=== PATIENT | female | born 1955 | race Caucasian/White ===

== ENCOUNTER → 2021-12-16 08:56 | Outpatient (BNVA) | payer MEDICARE, OTHER, SELFPAY | PROVIDERS: PCP Internal Medicine; Visit Provider Nurse Practitioner Family | DX: H81.09 Meniere's disease, unspecified ear (principal); H55.00 Unspecified nystagmus | CPT/HCPCS: 99212 ==

== ENCOUNTER → 2022-06-30 08:52 | Outpatient (BNVA) | payer MEDICARE, OTHER, SELFPAY | PROVIDERS: PCP Internal Medicine; Visit Provider Nurse Practitioner Family | DX: H55.00 Unspecified nystagmus (principal); H81.09 Meniere's disease, unspecified ear | CPT/HCPCS: Q3014 ==

== ENCOUNTER 2023-04-18 08:18 | Outpatient (AMB) | payer MEDICARE, OTHER, SELFPAY ==
--- NOTE | 2023-04-18 08:30 | A.OFFVIS_ITS ---
Intake Vital Signs 04/18/23 08:32 Weight 108 lb BP 102/58 L Blood Pressure Location Lt brachial Position Sitting Pulse 73 Pulse Source Pulse Oximeter Pulse Oximetry (%) 98 Oxygen Delivery Method Room Air Intake Visit Reasons: 6m follow up - LVM Intake Note: F/U dizziness Passenger Locomotive Engineer Required: No Allergies No Known Allergies Allergy (Verified 04/18/23 08:31) HPI HPI Comments History of Present Illness Details 67-yr-old female presents for f/u visit. Pt denies any significant interval medical changes. Pt reports that she did not do well with the vestibular therapist she saw in Nov- states the eval was difficult and caused her to feel unwell for the entire day. She states the PT questioned her Meniere's dx. 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 She tries to do this in the am. She tries to control light exposure, pacing her activities. She is still doing massage once a month. [facility] Medical History (Updated 12/16/21 @ 18:38 by OSMANI Velarde) Headache Surgical History (Updated 12/16/21 @ 09:27 by Jeana Zaman CMA) H/O hernia repair Social History (Updated 04/18/23 @ 08:32 by Jeana Zaman CMA) Alcohol intake: current Alcohol intake frequency: holidays/special occasions only Patient Tobacco Use Status: Never used Tobacco Review of Systems Const All systems reviewed & are unremarkable except as noted in HPI and below Physical Exam Vital Signs: Last Vital Signs Pulse 73 04/18/23 08:32 BP 102/58 L 04/18/23 08:32 Pulse Ox 98 04/18/23 08:32 Oxygen Delivery Method Room Air 04/18/23 08:32 Const General: cooperative and no acute distress Orientation/consciousness: patient oriented x3 HEENT Head: Yes normocephalic Resp Effort & Inspection: normal respiratory effort and able to speak in complete sentences Neuro General: patient oriented x3, gait normal and CN's II-XI intact bilaterally Cognition (Neuro): normal cognition Motor exam (neuro): 5/5 motor strength present throughout Psych Appearance: grossly normal Mental Status: mental status grossly normal Speech and movement: Normal speech and movement present Affect: normal affect Attitude: cooperative Thought process: Normal thought process present Thought content: Normal thought content present Insight: Good insight present (Psych) Judgement: Good judgement present (Psych) Assessment & Plan Assessment & Plan (1) Dizziness: Comment: unsteady episodes. ? cardiogenic, ? Meniere's, ? atypical migraine. Code(s): R42 - Dizziness and giddiness (2) Menieres disease: Code(s): H81.09 - Meniere's disease, unspecified ear Plan Unfortunately, recent vestibular tx was not tolerated well. F/u w/ [facility] when able. Continue exercise, salt moderation, fluids, limiting exacerbating triggers. Continue supplements and Ibuprofen prn f/u in 9 months or sooner prn Coding Level of Care Code Est Pt Level 3 (38078) Diagnoses Dizziness R42 Menieres disease H81.09
[2023-04-18 08:32] VITALS: BP 102/58; PULSE 73; O2SAT 98
== END 2023-04-18 09:33 | disposition home or self-care (01) ==
PROVIDERS: Visit Provider Nurse Practitioner Family
DX: H81.09 Meniere's disease, unspecified ear (principal)
CPT/HCPCS: 99213

== ENCOUNTER → 2023-04-18 08:18 | Outpatient (BNVA) | payer MEDICARE, OTHER, SELFPAY | PROVIDERS: Visit Provider Nurse Practitioner Family | DX: H81.09 Meniere's disease, unspecified ear (principal) | CPT/HCPCS: 99212 ==

== ENCOUNTER 2025-02-19 10:48 | Outpatient (AMB) | payer MEDICARE, OTHER, SELFPAY ==
--- NOTE | 2025-02-19 11:00 | MHC.OFFVIS ---
Vital Signs 02/19/25 11:06 Weight 107 lb BP 100/72 Blood Pressure Location Lt brachial Position Sitting Pulse 64 Pulse Source Pulse Oximeter Pulse Oximetry (%) 98 Oxygen Delivery Method Room Air Intake Visit Reasons: follow up Intake Note: Patient presents follow up for dizzines. Crematorium Operator Required: No Accompanied by: Self / Same As Patient Allergies No Known Allergies Allergy (Verified 02/19/25 11:07) Medication List - Last Reconciled 02/19/25 by OSMANI Velarde nystatin-triamcinolone 100,000-0.1 unit/g-% appl topical HPI Comments Details: 69-yr-old female presents for f/u visit of vestibular symptoms and history of white matter change seen on brain MRI. Pt denies any significant interval medical changes. Pt reports she continues to have to pace her activities, such as not reading beyond a certain length of time, avoiding sustained light exposure, being cautious not to turn her body/head to frequently, as not to induce dizziness and feeling of unwellness. She can still be prone to eye strain. She continues to exercise, though modifies the exercises to avoid triggering her dizziness. Patient continues on riboflavin 100 mg twice a day, vitamin B2 and magnesium supplements She is curious about trying a vitamin-B complex instead. She has curious about the status of the previously seen white matter abnormalities on previous brain MRI. [facility] Medical History (Updated 02/19/25 @ 11:52 by OSMANI Velarde) Headache Surgical History H/O hernia repair Social History Alcohol intake: current Alcohol intake frequency: holidays/special occasions only Patient Tobacco Use Status: Never used Tobacco Physical Exam Vital Signs: Last Vital Signs Pulse 64 02/19/25 11:06 BP 100/72 02/19/25 11:06 Pulse Ox 98 02/19/25 11:06 Oxygen Delivery Method Room Air 02/19/25 11:06 Const General: cooperative and no acute distress Orientation/consciousness: patient oriented x3 HEENT Head: Yes normocephalic Resp Effort & Inspection: normal respiratory effort and able to speak in complete sentences Neuro General: patient oriented x3, gait normal and CN's II-XI intact bilaterally Cognition (Neuro): normal cognition Motor exam (neuro): 5/5 motor strength present throughout Psych Appearance: grossly normal Mental Status: mental status grossly normal Speech and movement: Normal speech and movement present Affect: normal affect Attitude: cooperative Thought process: Normal thought process present Thought content: Normal thought content present Insight: Good insight present (Psych) Judgement: Good judgement present (Psych) Assessment & Plan Assessment & Plan (1) Dizziness: Comment: unsteady episodes. ? cardiogenic, ? Meniere's, ? atypical migraine. Code(s): R42 - Dizziness and giddiness Category: Medical (2) Nystagmus: Comment: cerebellovestibular nystagmus Code(s): H55.00 - Unspecified nystagmus Category: Medical (3) Menieres disease: Code(s): H81.09 - Meniere's disease, unspecified ear Category: Medical Plan Patient advised to undergo follow-up brain MRI without contrast to assess status of white matter changes seen on previous brain MRI. Continue exercise, salt moderation, fluids, limiting exacerbating triggers. Continue riboflavin up to 200 mg twice a day. Continue vitamin B12 and magnesium supplements. She may add vitamin-B complex to this regimen-with max doses of riboflavin up to 500 mg a day and magnesium up to 500 mg per day. May use Ibuprofen prn F/u w/ [facility] Previous trials: Vestibular therapy was not tolerated. Will follow-up upon review of above and patient to follow-up in clinic in 12 months or sooner prn. Orders: Orders MR head/brain wo con Today H55.00 - Unspecified nystagmus, R42 - Dizziness and giddiness, R90.82 - White matter disease, unspecified Coding Level of Care Code Est Pt Level 4 (19536) Diagnoses Dizziness R42 Nystagmus H55.00 Menieres disease H81.09
[2025-02-19 11:06] VITALS: BP 100/72; PULSE 64; O2SAT 98
--- OUTSIDE RECORDS SUMMARY | 2025-02-19 12:47 | XMS_ITS | Clinical Summary ---
Author Organization [address] [facility] Address [address] [place] [address] Phone Care Team Providers Care Milling Operator Name Role Phone Jeronimo Villagomez MD Primary Care Provider [phone] Allergies No known active allergies Medications calcium carbonate-vitami n D3 600 mg-12.5 mcg (500 unit) capsule Take by mouth. Active multivitamin with minerals (CENTRUM/CERTAVI T) 18-400 mg-mcg tablet tablet Take 1 tablet by mouth 1 (one) time each day. Active Active Problems Problem Noted Date Diagnosed Date Pulmonary nodule 02/17/2025 Cough 02/17/2025 Encounters Date Type Department Care Team Description 02/19/2025 10:30 AM EDT [facility] [address] [facility] [address] [place] [address] Aura Quintana MD Pulmonary nodule (Primary Dx); Cough, unspecified type from Last 3 Months Surgical History Surgery Date Site/Laterality Comments HERNIA REPAIR PROCEDURE:HERNIA REPAIR CATARACT EXTRACTION, BILATERAL PROCEDURE:CATARACT EXTRACTION, BILATERAL Medical History Medical History Date Comments Peptic ulceration DX:Peptic ulce ration Meniere's disease DX:Meniere's d isease Photophobia of both eyes 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 Family History Medical History Relation Name Comments Cancer Brother Skin Cancer Cousin breast Heart disease Father Hypertension Father Cancer Mother breast cancer COPD Sister Emphysema Sister Relation Name Status Comments Brother Cousin Father Mother Sister Social History Tobacco Use Types Packs/Day Years Used Date Smoking Tobacco: Former Passive Smoke Exposure: Past Smokeless Tobacco: Never Alcohol Use Standard Drinks/Week Comments No 0 (1 standard drink = 0.6 oz pur e alcohol) Comments Unknown Sex and Gender Information Value Date Recorded Sex Assigned at Not on file Legal Sex Female 7:57 PM EST Gender Identity Not on file Sexual Orientation Not on file Obstetrics History Last Filed Vital Signs Vital Sign Reading Time Taken Comments Blood Pressure 108/70 02/19/2025 10:36 AM EDT Pulse 65 02/19/2025 10:36 AM EDT Temperature 36.1 C (97 F) 02/19/2025 10:36 AM EDT Respiratory Rate 17 02/19/2025 10:3 6 AM EDT Oxygen Saturation 99% 02/19/2025 10: 36 AM EDT Inhaled Oxygen Concentration - - Weight 48.4 kg (106 lb 12.8 oz) 025 10:36 AM EDT Height 154.9 cm (5' 1 ) 02/19/2025 10:3 6 AM EDT Body Mass Index 20.18 02/19/2025 10:36 AM EDT Plan of Treatment Health Maintenance Due Date Last Done Comments Breast Cancer Screening 1955 Pneumococcal Vaccine: 50+ Years (1 of 1 - PCV) 2004 Zoster Vaccines (1 of 2) 2004 COVID-19 Vaccine ( season) 2024 05/22/2023, 08/14/2021, 01/27/2021, Additional history exists Cholesterol Screening (Lipid Panel) 01/23/2025 Colorectal Cancer Screening: Colonoscopy 01/23/2025 Depression Screening 01/23/2025 Falls Risk Assessment 01/23/2025 Hepatitis C Screening 01/23/2025 Medicare Annual Wellness Visit 01/23/2025 12/12/2022 Osteoporosis Screening (Bone Density Screening) 01/23/2025 Social Influencers of Health Screening 01/23/2025 RSV Immunization Adult Patients (1 - 1-dose 75+ series) 2029 DTaP,Tdap,and Td Vaccines (2 - Td or Tdap) 12/27/2032 12/27/2022 Influenza Vaccine Completed 05/20/2024, , 06/10/2022, Additional history exists HIB Vaccines Aged Out No longer eligi ble based on patient's age to complete this topic HPV Vaccines Aged Out No longer eligi ble based on patient's age to complete this topic Hepatitis A Vaccines Aged Out No long er eligible based on patient's age to complete this topic Hepatitis B Vaccines Aged Out No long er eligible based on patient's age to complete this topic IPV Vaccines Aged Out No longer eligi ble based on patient's age to complete this topic MMR Vaccines Aged Out No longer eligi ble based on patient's age to complete this topic Meningococcal ACWY Vaccine Aged Out N o longer eligible based on patient's age to complete this topic Meningococcal B Vaccine Aged Out No l onger eligible based on patient's age to complete this topic RSV Immunization Patients Under 20 months Aged Out No longer eligible based on patient's age to complete this topic Varicella Vaccines Aged Out No longer eligible based on patient's age to complete this topic Insurance MEDICARE [facility] Care Teams Milling Operator Relationship Specialty Start Date End Date Jeronimo Villagomez MD [address] [place] [id number] PCP - General Internal Medicine 04/24/18
== END 2025-02-19 12:18 | disposition home or self-care (01) ==
LOC: HO.HSMS 10:49
PROVIDERS: PCP Internal Medicine; Visit Provider Nurse Practitioner Family
DX: H55.00 Unspecified nystagmus (principal); H81.09 Meniere's disease, unspecified ear; R42 Dizziness and giddiness
CPT/HCPCS: 99214

== ENCOUNTER → 2025-02-19 10:48 | Outpatient (BNVA) | payer MEDICARE, OTHER, SELFPAY | PROVIDERS: PCP Internal Medicine; Visit Provider Nurse Practitioner Family | DX: R42 Dizziness and giddiness (principal); H55.09 Other forms of nystagmus; H81.09 Meniere's disease, unspecified ear; R90.82 White matter disease, unspecified | CPT/HCPCS: 99212 ==

== ENCOUNTER 2025-03-22 08:44 | Outpatient (REF) | payer MEDICARE, OTHER, SELFPAY ==
--- OUTSIDE RECORDS SUMMARY | 2024-07-31 10:40 | XMS_ITS ---
Author Organization [facility] Address [address] [address] Care Team Providers Care Seafood Preparer Name Role Phone ADINA ALONSO M.D. Primary Care Provider Unavailab Luzmaria Hernandez Unavailable [phone] REASON FOR VISIT HR MEDICARE PE (YELLOW FORM DONE) Encounters Encounter Location Date Provider Diagnosis [facility] [place] [address] [address] 07/31/2024 Luzmaria Lea Plan Of Treatment Next Appt Details Provider Name:Luzmaria perezyahir, 08/25/2025 10:00:00 AM, [address] [place] [address], [place], [address], Progress Notes * COREY CHILELDOB:1955 (69 yo F)Acc No.[id number]:07/31/2024 PROGRESS NOTES Patient: COREY SANFORD Appointment Provider: Joan Lea M.D. :1955 A ge:69 Y S ex:Female Date:07/31/2024 Address:[address] [place] [address] Pcp:ADINA ALONSO M.D. Subjective: * Chief Complaints: * 1 . HR MEDICARE PE (YELLOW FORM DONE). * Medical History: U nspecified infantile and juvenile cataract, unspecified eye, Herpesviral vulvovaginitis, Benign neoplasm of vulva, Postmenopausal atrophic vaginitis, Inconclusive mammogram, Other abnormal and inconclusive findings on diagnostic imaging of breast, Family history of malignant neoplasm of breast, Melena, Migraine without aura, intractable, without status migrainosus, Visual discomfort, bilateral, Meniere's disease, right ear, Unspecified disorder of binocular vision, Unspecified disorder of vestibular function, unspecified ear, Other specified disorders of binocular movement, Generalized contraction of visual field, unspecified eye, Mammographic heterogeneous density, bilateral breasts. * Rigging Supervisor History: G ravida/ Para 2 /2. S exual activity c urrently sexually active. L ast Pap Smear: NIL, NEG HPV, 03/31/20 NIL, NEG HPV, 03/02/2017, NEG HRHPV. M ammogram: 50-75% density, 09/08/23 Breast MRI, 03/25/23 50-75% density, 08/31/22 Alli Breast Ultrasound, 09/15/21 Bilateral Screening Breast U/S, 03/17/21 > 75% density, 10/28/20 Breast MRI, 03/11/20 50-75% density, 12/2017 normal, 01/09/17 50-75% density, 03/02/16 Neg MRI, 01/04/16 50-75% density, 12/31/14 < 50% density, 12/17/13, 50-75% density. L MP and menses M enopause. H istory of STD's: H erpes Simplex Virus (HSV). B irth Control: N one. C olonoscopy 2011. B one Density: , 11/16/20, 01/04/16, 12/17/13. G YN HISTORY MISC. DB counseling done. Linda Olmedock risk 32.1%. myRisk was neg, and risk re-calculated to 16.5%. No supplemental screening indicated. * OB History: T otal pregnancies 2 . T otal living children 2 . N VD 2 . Objective: * Vitals: Assessment: Plan: * Treatment: * Images: Billing Information: * Visit Code: * Procedure Codes: * Electronic signature of Reina Lea MD on 03/22/2025 at 08:49 AM EDT Sign off status: Pending * Appointment Provider: Joan Lea M.D. Date: 1 10/01/2023 Generated for Bjorn whitfield/Iwona/Shavon on: 0 03/22/2025 08:49 AM EDT
--- NOTE | ~2025-03-22 | MR_ITS ---
CLINICAL HISTORY: white matter disease MR Brain without gadolinium Comparison: None provided Findings: The size and shape of the ventricular system is within normal limits for this patient's age. Few scattered foci of T2 and FLAIR hyperintensity are identified within the periventricular and deep white matter, not unexpected in a patient of this age. Mercado-white differentiation is well preserved. No restricted diffusion. No midline shift or mass effect. No intracranial hemorrhage. Visualized flow voids are patent. No calvarial lesions. IMPRESSION: Unremarkable brain MRI for age. This document has been electronically signed by: Doron Camarena MD on 03/22/2025 10:03:21
--- OUTSIDE RECORDS SUMMARY | 2025-03-22 08:49 | XMS_ITS | Patient Health Record ---
Author Organization [facility] [address] Address [address] [place] [address] Care Team Providers Care Slider Assembler Name Role Phone CELESTE ADINA Primary Care Provider VILMA VILLAGOMEZ Unavailable [phone] BENITA JIMENEZ Unavailable [phone] MARK CHRISTIANSEN Unavailable [phone] BAY YATES Unavailable [phone] VIV VILLALOBOS Unavailable [phone] Allergies No Known Allergies Results Component Value Reference Range Notes Hemoglobin A1c Reviewed date:01/07/2025 03:04:02 PM Interpretation: Performing Lab:[facility], [address] [place] [address], Phone - [phone], Director - Stephanie Notes/Report: Hemoglobin A1c 5.5 Reference Range: [place] Diabetes Association (ADA) Guidelines: <5.7: Decreased risk for diabetes 5.7 - 6.4: Increased risk for diabetes >6.4: Ongoing Hyperglycemia of any cause <7.0: Glycemic control for adults with diabetes Estimated Average Glucose 111 Hemoglobin [id number]-[id number] Reviewed date:12/17/2024 08:08:10 AM Interpretation: Performing Lab:[facility], [address] [facility], Phone - [phone], Director - Oksana Notes/Report: Hemoglobin A1c 5.8 4.8-5.6 % . Prediabetes: 5.7 - 6.4 Diabetes: >6.4 Glycemic control for adults with diabetes: <7.0 Urinalysis, Routine-[id number] Reviewed date:12/17/2024 08:08:10 AM Interpretation: Performing Lab:[facility], [address] [place] [address], Phone - [phone], Director - Oksana Notes/Report: Specific [place] 1.008 1.005-1.030 pH 6.0 5.0-7.5 Urine-Color Yellow Yellow Appearance Clear Clear WBC Esterase Negative Negative Protein Negative Negative/Trace Glucose Negative Negative Ketones Negative Negative Occult Blood Negative Negative Bilirubin Negative Negative Urobilinogen,Semi-Qn 0.2 0.2-1.0 mg/dL Nitrite, Urine Negative Negative Microscopic Examination Micr oscopic not indicated and not performed. Urinalysis, Complete-[id number] Reviewed date:05/23/2024 09:29:25 AM Interpretation: Performing Lab:[facility], [address] [place] [address], Phone - [phone], Director - Oksana Notes/Report: Specific [place] 1.007 1.005-1.030 pH 6.5 5.0-7.5 Urine-Color Yellow Yellow Appearance Clear Clear WBC Esterase Trace Negative Protein Negative Negative/Trace Glucose Negative Negative Ketones Negative Negative Occult Blood Negative Negative Bilirubin Negative Negative Urobilinogen,Semi-Qn 0.2 0.2-1.0 mg/dL Nitrite, Urine Negative Negative Microscopic Examination See below: Micr oscopic was indicated and was performed. WBC None seen 0 - 5 /hpf RBC None seen 0 - 2 /hpf Epithelial Cells (non renal) 0-10 0 - 10 /hpf Casts None seen None seen /lpf Bacteria None seen None seen/Few CBC With Differential/Platel et-[id number] Reviewed date:05/23/2024 09:29:39 AM Interpretation: Performing Lab:[facility], [address] [place] [address], Phone - [phone], Director - Fernandezy Notes/Report: WBC 3.8 3.4-10.8 x10E3/uL RBC 4.19 3.77-5.28 x10E6/uL Hemoglobin 13.1 11.1-15.9 g/dL Hematocrit 39.5 34.0-46.6 % MCV 94 79-97 fL MCH 31.3 26.6-33.0 pg MCHC 33.2 31.5-35.7 g/dL RDW 11.4 11.7-15.4 % Platelets 194 150-450 x10E3/uL Neutrophils 54 Not Estab. % Lymphs 29 Not Estab. % Monocytes 14 Not Estab. % Eos 2 Not Estab. % Basos 1 Not Estab. % Neutrophils (Absolute) 2.0 1.4-7.0 x10E3/uL Lymphs (Absolute) 1.1 0.7-3.1 x10E3/uL Monocytes(Absolute) 0.5 0.1-0.9 x10E3/uL Eos (Absolute) 0.1 0.0-0.4 x10E3/uL Baso (Absolute) 0.0 0.0-0.2 x10E3/uL Immature Granulocytes 0 Not Estab. % Immature Grans (Abs) 0.0 0.0-0.1 x10E3/uL CBC With Differential/Platel et-[id number] Reviewed date:12/17/2024 08:08:10 AM Interpretation: Performing Lab:[facility], [address] [place] [address], [place], Phone - [phone], Director - Oksana Notes/Report: WBC 3.2 3.4-10.8 x10E3/uL RBC 4.63 3.77-5.28 x10E6/uL Hemoglobin 14.1 11.1-15.9 g/dL Hematocrit 42.9 34.0-46.6 % MCV 93 79-97 fL MCH 30.5 26.6-33.0 pg MCHC 32.9 31.5-35.7 g/dL RDW 11.9 11.7-15.4 % Platelets 176 150-450 x10E3/uL Neutrophils 52 Not Estab. % Lymphs 35 Not Estab. % Monocytes 11 Not Estab. % Eos 1 Not Estab. % Basos 1 Not Estab. % Neutrophils (Absolute) 1.7 1.4-7.0 x10E3/uL Lymphs (Absolute) 1.1 0.7-3.1 x10E3/uL Monocytes(Absolute) 0.4 0.1-0.9 x10E3/uL Eos (Absolute) 0.0 0.0-0.4 x10E3/uL Baso (Absolute) 0.0 0.0-0.2 x10E3/uL Immature Granulocytes 0 Not Estab. % Immature Grans (Abs) 0.0 0.0-0.1 x10E3/uL Vitamin D, [id number] Reviewed date:05/23/2024 09:27:45 AM Interpretation: Performing Lab:[facility], [facility], Phone - [phone], Director - Oksana Notes/Report: Vitamin D, 25-Hydroxy 69.5 30.0-100.0 ng/mL Vitamin D deficiency has been defined by the [place] of [employer] and an Endocrine Society practice guideline as a level of serum 25-OH vitamin D less than 20 ng/mL (1,2). The Endocrine Society went on to further define vitamin D insufficiency as a level between 21 and 29 ng/mL (2). 1. IOM ([place] of [employer]). 2010. Dietary reference intakes for calcium and D. [place]: The National Academies Press. 2. Nroi MF, Miquel NC, Phil ENCISO, et al. Evaluation, treatment, and prevention of vitamin D deficiency: an Endocrine Society clinical practice guideline. JCEM. 2010; 96(7):1911-30. Lipid Panel-[id number] Reviewed date:05/23/2024 09:27:45 AM Interpretation: Performing Lab:[facility], [facility], Phone - [phone], Director - Oksana Notes/Report: Cholesterol, Total 181 100-199 mg/dL Triglycerides 59 0-149 mg/dL HDL Cholesterol 78 >39 mg/dL VLDL Cholesterol Armando 11 5-40 mg/dL LDL Chol Calc (NIH) 92 0-99 mg/dL Lipid Panel-[id number] Reviewed date:12/17/2024 08:08:10 AM Interpretation: Performing Lab:[facility], [facility], Phone - [phone], Director - Oksana Notes/Report: Cholesterol, Total 189 100-199 mg/dL Triglycerides 57 0-149 mg/dL HDL Cholesterol 75 >39 mg/dL VLDL Cholesterol Armando 11 5-40 mg/dL LDL Chol Calc (NIH) 103 0-99 mg/dL Comp. Metabolic Panel (14)-3 Reviewed date:12/17/2024 08:08:10 AM Interpretation: Performing Lab:[facility], [facility], Phone - [phone], Director - Oksana Notes/Report: Glucose 104 70-99 mg/dL BUN 13 8-27 mg/dL Creatinine 0.68 0.57-1.00 mg/dL eGFR 94 >59 mL/min/1.73 BUN/Creatinine Ratio 19 12-28 Sodium 139 134-144 mmol/L Potassium 4.3 3.5-5.2 mmol/L Chloride 103 96-106 mmol/L Carbon Dioxide, Total 22 20-29 mmol/L Calcium 8.8 8.7-10.3 mg/dL Protein, Total 6.4 6.0-8.5 g/dL Albumin 4.2 3.9-4.9 g/dL Globulin, Total 2.2 1.5-4.5 g/dL Bilirubin, Total 0.6 0.0-1.2 mg/dL Alkaline Phosphatase 61 44-121 IU/L AST (SGOT) 27 0-40 IU/L ALT (SGPT) 18 0-32 IU/L Comp. Metabolic Panel (14)-3 Reviewed date:05/23/2024 09:29:33 AM Interpretation: Performing Lab:[facility], [address] [place] [address], [place], Phone - [phone], Director - Oksana Notes/Report: Glucose 102 70-99 mg/dL BUN 13 8-27 mg/dL Creatinine 0.66 0.57-1.00 mg/dL eGFR 95 >59 mL/min/1.73 BUN/Creatinine Ratio 20 12-28 Sodium 135 134-144 mmol/L Potassium 4.1 3.5-5.2 mmol/L Chloride 101 96-106 mmol/L Carbon Dioxide, Total 21 20-29 mmol/L Calcium 8.8 8.7-10.3 mg/dL Protein, Total 6.4 6.0-8.5 g/dL Albumin 4.0 3.9-4.9 g/dL Globulin, Total 2.4 1.5-4.5 g/dL Bilirubin, Total 0.5 0.0-1.2 mg/dL Alkaline Phosphatase 74 44-121 IU/L AST (SGOT) 21 0-40 IU/L ALT (SGPT) 16 0-32 IU/L Reason For Referral Reason Evaluate & Treat Diagnosis 1 Knee pain, unspecifi ed chronicity, unspecified laterality (M25.569) Referral Organization [facility] [address] Referring Provider First Name BAY Referring Provider Last Name TRUDY Referring Provider Speciality Internal M edicine Referred Provider Specialty Physical The rapist General Notes Mary Berry 2024 10:05:56 AM > [facility] [place] , [phone], [phone] Referral Priority Routine Reason evaluate and treat Diagnosis 1 Knee pain (M25.569) Referral Organization [facility] [address] Referring Provider First Name BAY Referring Provider Last Name TRUDY Referring Provider Speciality Internal M edicine Referred Provider Specialty Orthopedic S graceery Clinical Notes Kylah Arita 02:36:52 PM >faxed referral to [facility], p) [phone], F) [phone] Referral Priority Routine Reason Evaluate & Treat Diagnosis 1 Bilateral primary os teoarthritis of knee (M17.0) Diagnosis 2 Right hip pain (M25. 551) Referral Organization [facility] [address] Referring Provider First Name MARK Referring Provider Last Name ЕЛЕНА Referring Provider Speciality Internal M edicine Referred Provider Specialty Physical The rapist General Notes Moon Ramirez 0 01/28/2025 09:47:25 AM > Referral to [facility] and faxed, p. [phone], f. [phone] Referral Priority Routine Medications Medication SIG (Take, Route, Frequency, Duration) Notes Start Date End Date Status Vitamin B2 Unknown Calcium + D 315-200 MG-UNIT 1 tablet Orally Twice a day; Duration: 30 day(s) Unknown Nystatin 863473 UNIT/GM 1 application Externally Twice a day dermatology Unknown CeleBREX 100 MG 1 capsule as needed for knee pain Orally twice a day; Duration: 14 days Active Magnesium 300 MG 1 capsule with a giovanni l Orally Once a day; Duration: 30 day(s) Unknown Vitamin B12 100 MCG as directed Orally Unknown Multivitamin Adult - as directed Orally Unknown Yuvafem 10 MCG INSERT 1 TABLET VAGINAL THREE TIMES A WEEK 90 DAYS Vaginal; Duration: 84 Days Unknown Immunizations Vaccine Route Administration Date Status Comme nts Moderna Covid-19 Vaccine Unknown 11/18/2020 Administere d Moderna Covid-19 Vaccine Unknown 01/27/2021 Administere d Moderna Covid-19 Vaccine Unknown 08/14/2021 Administere d Tdap IM Intramuscular 12/27/2022 Administered Social History Tobacco Use: Social History Observation Description Date Details (start date - stop date) Former Smoker NA - NA Tobacco Use/Smoking Question Answer Notes Are you a former smoker 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 confirmed Problem Hyperlipidemia (88270961) Hyperlipidemia, unspecified (E78.5) Active confirmed Problem Dermatochalasis of right upper eyelid (803718747269512) Dermatochalasis of right upper eyelid (H02.831) Active confirmed Problem Dermatochalasis of left upper eyelid (236943369242443) Dermatochalasis of left upper eyelid (H02.834) Active confirmed Problem Excess skin of eyelid (691857675) Dermatochalasis of unspecified eye, unspecified eyelid (H02.839) Active confirmed Problem Menieres disease (59947211) Meniere's disease, 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) Active confirmed Problem Chronic sinusitis (41697647) Chronic sinusitis, unspecified (J32.9) Active confirmed Problem Osteoarthritis of knee (352738797) Bilateral primary osteoarthritis of knee (M17.0) Active confirmed Problem Scoliosis (459343448) Scoliosis, unspecified (M41.9) Active confirmed Problem Perimenopausal disorder (471859855) Other specified menopausal and perimenopausal disorders (N95.8) Active confirmed Problem Lipid screening (243476817) Encounter for screening for lipoid disorders (Z13.220) Active confirmed Problem Essential hypertension (03248386) Essential hypertension (I10) Active confirmed Problem Solitary nodule of lung (465590524) Lung nodule (R91.1) Active confirmed Problem Adult health examination (878402805) Adult general medical exam (Z00.00) Active confirmed Problem Pain in wrist (86117645) Right wrist pain (M25.531) Active confirmed Problem Vitamin D deficiency (89844162) Vitamin D deficiency (E55.9) Active confirmed Problem Pain in right foot (921982568426662) Right foot pain (M79.671) Active confirmed Problem Plantar fasciitis (700604817) Plantar fasciitis (M72.2) Active confirmed Problem Diabetes mellitus screening (593410490) Diabetes mellitus screening (Z13.1) Active confirmed Problem Raynaud's disease (549551454) Raynaud's disease without gangrene (I73.00) Active confirmed Problem Menieres disease (36372685) 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) Active confirmed Problem Vestibular migraine (304693054) Vestibular migraine (G43.809) Active confirmed Problem Abnormality of red blood cells (19707898) Abnormal RBC (R71.8) Active confirmed Vital Signs Heart Rate 63 /min 01/28/2025 Oximetry 99 % 01/28/2025 Blood pressure diastolic 86 mm Hg 01/28/2025 Height 55 in 01/28/2025 Blood pressure systolic 118 mm Hg 01/28/2025 Weight 108 lbs 01/28/2025 BMI 25.1 kg/m2 01/28/2025 Encounters Encounter Location Date Provider Diagnosis [facility] [address] [place] [address] 06/03/2024 MARK CHRISTIANSEN Raynaud's disease wi thout gangrene I73.00 ; Onychomycosis B35.1 ; Abnormal RBC R71.8 ; Vestibular migraine G43.809 and Plantar fasciitis M72.[address] [facility] [address] [place], [place] 09/30/2024 VIV GRISELDA Acute sore throat J0 2.9 ; Cough in adult R05.9 and Raynaud's disease without gangrene I73.[address] [facility] [address] [place] [address] 12/19/2024 BENITA JIMENEZ Encounter for screen ing for depression Z13.31 ; Medicare annual wellness visit, subsequent Z00.00 and Encounter for screening for other disorder Z13.[address] [facility] [address] [place] [address] 01/14/2025 BAY MEANSA Acute pain of left k nee M25.562 ; Asymptomatic bradycardia R00.1 and Encounter for examination of blood pressure without abnormal findings Z01.[address] [facility] [address] [place] [address] 01/22/2025 BENITA JIMENEZ Asymptomatic bradyca rdia R00.1 ; Right knee pain, unspecified chronicity M25.561 and Encounter for examination of blood pressure without abnormal findings Z01.[address] [facility] [address] [place] [address] 01/28/2025 MARK CHRISTIANSEN Right hip pain M25.5 51 ; Muscle strain T14.8XXA and Encounter for examination of blood pressure without abnormal findings Z01.30 [facility] [address] [facility] [address] [place] [address] 08/12/2024 VILMA VILLAGOMEZ [facility] [address] [place] [address] 09/30/2024 ADINA VILLAGOMEZ [facility] [address] [place] [address] 09/30/2024 ADINA VILLAGOMEZ [facility] [address] [place] [address] 11/20/2024 ADINA VILLAGOMEZ Encounter for screen ing for osteoporosis Z13.820 ; Other specified menopausal and perimenopausal disorders N95.8 and Breast cancer screening by mammogram Z12.31 [facility] [address] [place] [address] 12/12/2024 ADINA VILLAGOMEZ [facility] [address] [place] [address] 12/17/2024 ADINA VILLAGOMEZ [facility] [address] [place] [address] 01/07/2025 ADINA VILLAGOMEZ [facility] [address] [place] [address] 01/07/2025 ADINA VILLAGOMEZ [facility] [address] [place] [address] 01/13/2025 ADINA VILLAGOMEZ [facility] [address] [place] [address] 01/15/2025 VILMA VILLAGOMEZ [facility] [address] [place] [address] 01/16/2025 BAY YATES [facility] [address] [place] [address] 01/21/2025 MARK CHRISTIANSEN [facility] [address] [place] [address] 01/27/2025 BENITA RONQUILLOA [facility] [address] [place] [address] 01/27/2025 BENITA TONY [facility] [address] [place] [address] 03/11/2025 ADINA VILLAGOMEZ [facility] [address] [place] [address] 03/11/2025 ADINA VILLAGOMEZ [facility] [address] [place] [address] 03/20/2025 ADINA IVLLAGOMEZ Assessments Encounter Date Diagnosis (ICD Code) Assessment Notes Treatment Notes Treatment Clinical Notes Section Notes 01/28/2025 Right hip pain (ICD-10 - M25.551) Kim is a pleasant 6-year-old female who presents the office for an urgent care visit with 1 day of right hip pain, and history of bilateral knee pain for which she has noticed improvement with Celebrex, and PT. Patient states she is no longer following with PT, and physical exam overall benign aside from mild tenderness over the trochanteric bursa. Questioning potential bursitis, versus arthritis/joint inflammation. Patient is very active, could be secondary to repetitive use. No red flag symptoms at this time so we will treat with Celebrex twice daily as needed, fcnl-ttz-xrsnbfa conservative treatments, lidocaine patches, stretching, PT. If no improvement in symptoms, will order imaging. Did discuss emergency department criteria/criteria to call the office. Patient thankful. All quetsions answered to patients satisfaction. Patient verbalized understanding of diagnosis and treatments explained. To call sooner prior to next visit it any questions/concerns arise. Case discussed with collaborating physician Lazaro Villagomez who reviewed the assessment and plan. Chart, medications, labs, vital signs reviewed. Dictation was accomplished with the use of Paxfire voice recognition software, prone to medical misidentifications and grammatical errors. This is unintentional and the practitioner does try to identify and correct these, but some could still be present. Please do not hesitate to contact practitioner for clarification. 01/28/2025 Muscle strain (ICD-10 - T14.8XXA) Kim is a pleasant 6-year-old female who presents the office for an urgent care visit with 1 day of right hip pain, and history of bilateral knee pain for which she has noticed improvement with Celebrex, and PT. Patient states she is no longer following with PT, and physical exam overall benign aside from mild tenderness over the trochanteric bursa. Questioning potential bursitis, versus arthritis/joint inflammation. Patient is very active, could be secondary to repetitive use. No red flag symptoms at this time so we will treat with Celebrex twice daily as needed, djdl-dmr-rrkldku conservative treatments, lidocaine patches, stretching, PT. If no improvement in symptoms, will order imaging. Did discuss emergency department criteria/criteria to call the office. Patient thankful. All quetsions answered to patients satisfaction. Patient verbalized understanding of diagnosis and treatments explained. To call sooner prior to next visit it any questions/concerns arise. Case discussed with collaborating physician Lazaro Villagomez who reviewed the assessment and plan. Chart, medications, labs, vital signs reviewed. Dictation was accomplished with the use of Paxfire voice recognition software, prone to medical misidentifications and grammatical errors. This is unintentional and the practitioner does try to identify and correct these, but some could still be present. Please do not hesitate to contact practitioner for clarification. 01/22/2025 Right knee pain, unspecified chronicity (ICD-10 - M25.561) Kim is a pleasant 69-year-old female presents today for urgent visit. #Right knee pain: 1 week history of left knee pain. Denies any trauma, popping sensation or clicking. Aggravated by flexion of right knee. Patient is physically active and will walk a few hours a day as well as strength training with a personal care attendant. Denies any swelling to right knee. Denies any other symptoms. Tenderness aggravated with flexion when sitting from standing position. States overall tenderness has improved after elevating knee yesterday at work. Has also been using a topical IcyHot. States today was the first day that she was able to ambulate without dragging her left leg. Patient ambulating well without assistance or tenderness. Recommend avoiding strenuous activity in addition to lower body strength training for the next 1-2 weeks. Recommend rest, elevation and applying ice to left knee. Just finished Celebrex to take as needed twice daily x 7 days for pain management and place PT order. Will order knee x-ray. Patient agreeable with plan. #Bradycardia: Heart rate of 58. Appears to be within patient's baseline. Denies any shortness of breath, dizziness, lightheadedness or chest pain. Will continue to monitor. All questions answered to patients satisfaction. Patient verbalized understanding of diagnosis and treatments explained. To call sooner prior to next visit it any questions/concerns arise. Case discussed with collaborating physician Dr.N Villagomez who reviewed the assessment and plan. Chart, medications, labs, vital signs reviewed. Dictation was accomplished with the use of Paxfire voice recognition software, prone to medical misidentifications and grammatical errors. This is unintentional and the practitioner does try to identify and correct these, but some could still be present. Please do not hesitate to contact practitioner for clarification. 01/22/2025 Asymptomatic bradycardia (ICD-10 - R00.1) Kim is a pleasant 69-year-old female presents today for urgent visit. #Right knee pain: 1 week history of left knee pain. Denies any trauma, popping sensation or clicking. Aggravated by flexion of right knee. Patient is physically active and will walk a few hours a day as well as strength training with a personal care attendant. Denies any swelling to right knee. Denies any other symptoms. Tenderness aggravated with flexion when sitting from standing position. States overall tenderness has improved after elevating knee yesterday at work. Has also been using a topical IcyHot. States today was the first day that she was able to ambulate without dragging her left leg. Patient ambulating well without assistance or tenderness. Recommend avoiding strenuous activity in addition to lower body strength training for the next 1-2 weeks. Recommend rest, elevation and applying ice to left knee. Just finished Celebrex to take as needed twice daily x 7 days for pain management and place PT order. Will order knee x-ray. Patient agreeable with plan. #Bradycardia: Heart rate of 58. Appears to be within patient's baseline. Denies any shortness of breath, dizziness, lightheadedness or chest pain. Will continue to monitor. All questions answered to patients satisfaction. Patient verbalized understanding of diagnosis and treatments explained. To call sooner prior to next visit it any questions/concerns arise. Case discussed with collaborating physician Dr.N Villagomez who reviewed the assessment and plan. Chart, medications, labs, vital signs reviewed. Dictation was accomplished with the use of Paxfire voice recognition software, prone to medical misidentifications and grammatical errors. This is unintentional and the practitioner does try to identify and correct these, but some could still be present. Please do not hesitate to contact practitioner for clarification. 01/14/2025 Acute pain of left knee (ICD-10 - M25.562) Kim is a pleasant 69-year-old female presents today for urgent visit. #Left knee pain: 1 week history of left knee pain. Denies any trauma, popping sensation or clicking. Aggravated by flexion of left knee. Patient is physically active and will walk a few hours a day as well as strength training with a personal care attendant. Recently introduced a weighted vest to her walks 6 weeks ago. Otherwise, has had no change in exercise regimen. Denies any falls or new lower body exercises. Denies any swelling to left knee. Denies any other symptoms. On exam patient has tenderness to superior aspect of left patella. No posterior patella tenderness or edema. No palpable nodule. 2+ popliteal pulse. Tenderness aggravated with flexion when sitting from standing position. States overall tenderness has improved after elevating knee yesterday at work. Has also been using a topical IcyHot. States today was the first day that she was able to ambulate without dragging her left leg. Patient ambulating well without assistance or tenderness. Recommend avoiding strenuous activity in addition to lower body strength training for the next 1-2 weeks. Recommend avoiding weighted vest to avoid increased pressure on knee. Recommend rest, elevation and applying ice to left knee. Will prescribe Celebrex to take as needed twice daily x 7 days for pain management and place PT order. Will order knee x-ray and consider MRI. Will call regarding results. Patient agreeable with plan. #Bradycardia: Heart rate of 58. Appears to be within patient's baseline. Denies any shortness of breath, dizziness, lightheadedness or chest pain. Will continue to monitor. All questions answered to patients satisfaction. Patient verbalized understanding of diagnosis and treatments explained. To call sooner prior to next visit it any questions/concerns arise. Case discussed with collaborating physician Dr. Villagomez who reviewed the assessment and plan. Chart, medications, labs, vital signs reviewed. Dictation was accomplished with the use of Paxfire voice recognition software, prone to medical misidentifications and grammatical errors. This is unintentional and the practitioner does try to identify and correct these, but some could still be present. Please do not hesitate to contact practitioner for clarification. 01/14/2025 Asymptomatic bradycardia (ICD-10 - R00.1) Kim is a pleasant 69-year-old female presents today for urgent visit. #Left knee pain: 1 week history of left knee pain. Denies any trauma, popping sensation or clicking. Aggravated by flexion of left knee. Patient is physically active and will walk a few hours a day as well as strength training with a personal care attendant. Recently introduced a weighted vest to her walks 6 weeks ago. Otherwise, has had no change in exercise regimen. Denies any falls or new lower body exercises. Denies any swelling to left knee. Denies any other symptoms. On exam patient has tenderness to superior aspect of left patella. No posterior patella tenderness or edema. No palpable nodule. 2+ popliteal pulse. Tenderness aggravated with flexion when sitting from standing position. States overall tenderness has improved after elevating knee yesterday at work. Has also been using a topical IcyHot. States today was the first day that she was able to ambulate without dragging her left leg. Patient ambulating well without assistance or tenderness. Recommend avoiding strenuous activity in addition to lower body strength training for the next 1-2 weeks. Recommend avoiding weighted vest to avoid increased pressure on knee. Recommend rest, elevation and applying ice to left knee. Will prescribe Celebrex to take as needed twice daily x 7 days for pain management and place PT order. Will order knee x-ray and consider MRI. Will call regarding results. Patient agreeable with plan. #Bradycardia: Heart rate of 58. Appears to be within patient's baseline. Denies any shortness of breath, dizziness, lightheadedness or chest pain. Will continue to monitor. All questions answered to patients satisfaction. Patient verbalized understanding of diagnosis and treatments explained. To call sooner prior to next visit it any questions/concerns arise. Case discussed with collaborating physician Dr. Villagomez who reviewed the assessment and plan. Chart, medications, labs, vital signs reviewed. Dictation was accomplished with the use of Paxfire voice recognition software, prone to medical misidentifications and grammatical errors. This is unintentional and the practitioner does try to identify and correct these, but some could still be present. Please do not hesitate to contact practitioner for clarification. 06/03/2024 Onychomycosis (ICD-10 - B35.1) # Labs reviewed, overall without concern. Patient lives a very active, and healthy lifestyle. CBC showing improvement. Drinking plenty of water. # Patient encouraged to continue taking multiple supplements. # Following with dermatology, taking nystatin for her fingernails, cream, and recently waxed her eyebrows with wax it was too hot, therefore she has stoddard are healing well. Educated on Aquaphor.Soaking with alcohol/vinegar and has been helping. # Vestibular migraines: Controlled # Raynaud's syndrome: Much better with the warmer weather, Has warm hand compresses for the winter. # Planta fasciitis/shinsplint s: Treated with at home stretching, and proper shoe inserts. # Patient up-to-date on all routine screenings, and vaccines.Declines RSV but just received flu and COVID-vaccine at the pharmacy. Follow-up in 6 months for Medicare wellness visit with blood work, sooner as needed All quetsions answered to patients satisfaction. Patient verbalized understanding of diagnosis and treatments explained. To call sooner prior to next visit it any questions/concerns arise. Case discussed with collaborating physician Lazaro Villagomez who reviewed the assessment and plan. Chart, medications, labs, vital signs reviewed. Dictation was accomplished with the use of Paxfire voice recognition software, prone to medical misidentifications and grammatical errors. This is unintentional and the practitioner does try to identify and correct these, but some could still be present. Please do not hesitate to contact practitioner for clarification. 06/03/2024 Raynaud's disease without gangrene (ICD-10 - I73.00) # Labs reviewed, overall without concern. Patient lives a very active, and healthy lifestyle. CBC showing improvement. Drinking plenty of water. # Patient encouraged to continue taking multiple supplements. # Following with dermatology, taking nystatin for her fingernails, cream, and recently waxed her eyebrows with wax it was too hot, therefore she has stoddard are healing well. Educated on Aquaphor.Soaking with alcohol/vinegar and has been helping. # Vestibular migraines: Controlled # Raynaud's syndrome: Much better with the warmer weather, Has warm hand compresses for the winter. # Planta fasciitis/shinsplint s: Treated with at home stretching, and proper shoe inserts. # Patient up-to-date on all routine screenings, and vaccines.Declines RSV but just received flu and COVID-vaccine at the pharmacy. Follow-up in 6 months for Medicare wellness visit with blood work, sooner as needed All quetsions answered to patients satisfaction. Patient verbalized understanding of diagnosis and treatments explained. To call sooner prior to next visit it any questions/concerns arise. Case discussed with collaborating physician Lazaro Villagomez who reviewed the assessment and plan. Chart, medications, labs, vital signs reviewed. Dictation was accomplished with the use of Dragon voice recognition software, prone to medical misidentifications and grammatical errors. This is unintentional and the practitioner does try to identify and correct these, but some could still be present. Please do not hesitate to contact practitioner for clarification. 09/30/2024 Acute sore throat (ICD-10 - J02.9) Kim is a pleasant 69-year-old female with a past medical history of chronic sinusitis, vestibular migraines, osteopenia, Raynaud's, Neer's, plantar fasciitis who presents to the office today for an urgent visit. #Upper respiratory symptoms: Viral swab negative. At this time there is no indication for bacterial infection, patient is to utilize [id number] Sudafed or decongestants. #Raynaud's flare: Prednisone taper was sent to the pharmacy as the patient states that this has provided relief for her in the past. The patient is not interested in a calcium channel domingo at this time. #Insect bites: Continue to use antiitch cream for pruritic lesions on the bilateral lower extremities All questions have been answered to patient's satisfaction. Patient verbalized understanding of diagnosis and treatments explained. Advised to call sooner prior to next visit it any questions/concerns arise. Case discussed with Afshan GONZALES who reviewed the assessment and plan. Chart, medications, labs, vital signs reviewed. Dictation was accomplished with the use of Paxfire voice recognition software, which is prone to medical misidentifications and grammatical errors. This are unintentional and the practitioner does try to identify and correct these, but some could still be present. Please do not hesitate to contact practitioner for clarification. 09/30/2024 Cough in adult (ICD-10 - R05.9) Kim is a pleasant 69-year-old female with a past medical history of chronic sinusitis, vestibular migraines, osteopenia, Raynaud's, Neer's, plantar fasciitis who presents to the office today for an urgent visit. #Upper respiratory symptoms: Viral swab negative. At this time there is no indication for bacterial infection, patient is to utilize [id number] Sudafed or decongestants. #Raynaud's flare: Prednisone taper was sent to the pharmacy as the patient states that this has provided relief for her in the past. The patient is not interested in a calcium channel domingo at this time. #Insect bites: Continue to use antiitch cream for pruritic lesions on the bilateral lower extremities All questions have been answered to patient's satisfaction. Patient verbalized understanding of diagnosis and treatments explained. Advised to call sooner prior to next visit it any questions/concerns arise. Case discussed with Afshan GONZALES who reviewed the assessment and plan. Chart, medications, labs, vital signs reviewed. Dictation was accomplished with the use of Paxfire voice recognition software, which is prone to medical misidentifications and grammatical errors. This are unintentional and the practitioner does try to identify and correct these, but some could still be present. Please do not hesitate to contact practitioner for clarification. 12/19/2024 Encounter for screening for depression (ICD-10 - Z13.31) Kim is a 69-year-old female who presents the office for a Medicare wellness visit. # Labs reviewed, HbA1C 5.8. Pt would like to repeat. Lab slip given. Patient lives a very active, and healthy lifestyle. # Patient encouraged to continue taking multiple supplements. # Following with dermatology, taking nystatin for her fingernails, cream, # Vestibular migraines: Controlled, followed by ENT # Raynaud's syndrome: Much better with the warmer weather, not currently an issue # Planta fasciitis/shinsplint s: Treated with at home stretching, and proper shoe inserts. # Osteopenia. Started exercises with weight vest. Bone density due 02/2025 # Patient up-to-date on all routine screenings, and vaccines. Patient to follow-up in 6 months for repeat blood work, sooner as needed. Patient seen and examined. Comprehensive discussion was done on the following. 1. Nutrition: It is important to follow a healthy diet based on lots of vegetables and legumes and good fat. Avoid processed food and processed carbohydrates. Prepare your own meals. Read labels and avoid high fructose corn syrup, processed chemicals added to increase shelf life and preprepared meals. Avoid fast foods. Eat slowly and plan meals for a week. Try to count calories and be mindful off daily calorie intake. Get into the habit of keeping an eye on your weight by using an appropriate scale. Learn to log exercise and discussed fitness Apps like ESTmob which can help keep log off calories taken versus calories burned. Local food should be preferred. Discussed Dirty Dozen Versus Clean Fifteen. Discussed healthy supplements like fish oil, Tumeric, Curcumin, Melatonin, Resveratrol, Probiotics, Vitamin-D, Alpha-Lipoic acid, Vitamin-D and coconut oil. 2. It is important to exercise regularly. Is a good habit to walk at least 30 minutes a day. Gentle weightlifting with standard precautions to protect the back. Finding activity like cycling or hiking and get into the habit of engaging in it. Stretching before and after the exercises important. It is also important to contact me if there are any problems like shortness of breath, chest pain, back pain and joint or muscle pain associated with the exercise. 3. Discussed age appropriate screening guidelines. Colonoscopy needs to start at age 50 with stool for occult blood as appropriate. There is a new test that can test for genetic abnormalities in the stool sample, Cologuard. This would not replace a colonoscopy but could be used as a screening tool for patients who do not want a colonoscopy. We discussed the importance of early detection of colon cancer. 4. Discussed current guidelines with respect to breast examination, mammogram and pap smear for early detection of breast and cervical cancer. Patient advised to follow up with these appointments. 5. Discussed safe driving and no use of smart phone while driving 6. Age-appropriate immunizations were discussed. A tetanus booster is needed every 10 years. Flu vaccine is recommended every year just before the start of the flu season. Shingles vaccine is recommended after age 50 but not all insurances cover it. Pneumonia vaccine is given after age 65 unless there are certain comorbidities for which it is started earlier. 7. Diagnostic labs were discussed. These could include/not limited to CBC CMP and lipids with fasting blood glucose and insulin levels. Vitamin D and hemoglobin A1c testing might be appropriate. All quetsions answered to patients satisfaction. Patient verbalized understanding of diagnosis and treatments explained. To call sooner prior to next visit it any questions/concerns arise. Case discussed with collaborating physician Lazaro Villagomez who reviewed the assessment and plan. Chart, medications, labs, vital signs reviewed. Dictation was accomplished with the use of Paxfire voice recognition software, prone to medical misidentifications and grammatical errors. This is unintentional and the practitioner does try to identify and correct these, but some could still be present. Please do not hesitate to contact practitioner for clarification. 12/19/2024 Medicare annual wellness visit, subsequent (ICD-10 - Z00.00) Kim is a 69-year-old female who presents the office for a Medicare wellness visit. # Labs reviewed, HbA1C 5.8. Pt would like to repeat. Lab slip given. Patient lives a very active, and healthy lifestyle. # Patient encouraged to continue taking multiple supplements. # Following with dermatology, taking nystatin for her fingernails, cream, # Vestibular migraines: Controlled, followed by ENT # Raynaud's syndrome: Much better with the warmer weather, not currently an issue # Planta fasciitis/shinsplint s: Treated with at home stretching, and proper shoe inserts. # Osteopenia. Started exercises with weight vest. Bone density due 02/2025 # Patient up-to-date on all routine screenings, and vaccines. Patient to follow-up in 6 months for repeat blood work, sooner as needed. Patient seen and examined. Comprehensive discussion was done on the following. 1. Nutrition: It is important to follow a healthy diet based on lots of vegetables and legumes and good fat. Avoid processed food and processed carbohydrates. Prepare your own meals. Read labels and avoid high fructose corn syrup, processed chemicals added to increase shelf life and preprepared meals. Avoid fast foods. Eat slowly and plan meals for a week. Try to count calories and be mindful off daily calorie intake. Get into the habit of keeping an eye on your weight by using an appropriate scale. Learn to log exercise and discussed fitness Apps like ESTmob which can help keep log off calories taken versus calories burned. Local food should be preferred. Discussed Dirty Dozen Versus Clean Fifteen. Discussed healthy supplements like fish oil, Tumeric, Curcumin, Melatonin, Resveratrol, Probiotics, Vitamin-D, Alpha-Lipoic acid, Vitamin-D and coconut oil. 2. It is important to exercise regularly. Is a good habit to walk at least 30 minutes a day. Gentle weightlifting with standard precautions to protect the back. Finding activity like cycling or hiking and get into the habit of engaging in it. Stretching before and after the exercises important. It is also important to contact me if there are any problems like shortness of breath, chest pain, back pain and joint or muscle pain associated with the exercise. 3. Discussed age appropriate screening guidelines. Colonoscopy needs to start at age 50 with stool for occult blood as appropriate. There is a new test that can test for genetic abnormalities in the stool sample, Cologuard. This would not replace a colonoscopy but could be used as a screening tool for patients who do not want a colonoscopy. We discussed the importance of early detection of colon cancer. 4. Discussed current guidelines with respect to breast examination, mammogram and pap smear for early detection of breast and cervical cancer. Patient advised to follow up with these appointments. 5. Discussed safe driving and no use of smart phone while driving 6. Age-appropriate immunizations were discussed. A tetanus booster is needed every 10 years. Flu vaccine is recommended every year just before the start of the flu season. Shingles vaccine is recommended after age 50 but not all insurances cover it. Pneumonia vaccine is given after age 65 unless there are certain comorbidities for which it is started earlier. 7. Diagnostic labs were discussed. These could include/not limited to CBC CMP and lipids with fasting blood glucose and insulin levels. Vitamin D and hemoglobin A1c testing might be appropriate. All quetsions answered to patients satisfaction. Patient verbalized understanding of diagnosis and treatments explained. To call sooner prior to next visit it any questions/concerns arise. Case discussed with collaborating physician Lazaro Villagomez who reviewed the assessment and plan. Chart, medications, labs, vital signs reviewed. Dictation was accomplished with the use of Paxfire voice recognition software, prone to medical misidentifications and grammatical errors. This is unintentional and the practitioner does try to identify and correct these, but some could still be present. Please do not hesitate to contact practitioner for clarification. 11/20/2024 Encounter for screening for osteoporosis (ICD-10 - Z13.820) 11/20/2024 Other specified menopausal and perimenopausal disorders (ICD-10 - N95.8) 12/19/2024 Encounter for screening for other disorder (ICD-10 - Z13.89) Kim is a 69-year-old female who presents the office for a Medicare wellness visit. # Labs reviewed, HbA1C 5.8. Pt would like to repeat. Lab slip given. Patient lives a very active, and healthy lifestyle. # Patient encouraged to continue taking multiple supplements. # Following with dermatology, taking nystatin for her fingernails, cream, # Vestibular migraines: Controlled, followed by ENT # Raynaud's syndrome: Much better with the warmer weather, not currently an issue # Planta fasciitis/shinsplint s: Treated with at home stretching, and proper shoe inserts. # Osteopenia. Started exercises with weight vest. Bone density due 02/2025 # Patient up-to-date on all routine screenings, and vaccines. Patient to follow-up in 6 months for repeat blood work, sooner as needed. Patient seen and examined. Comprehensive discussion was done on the following. 1. Nutrition: It is important to follow a healthy diet based on lots of vegetables and legumes and good fat. Avoid processed food and processed carbohydrates. Prepare your own meals. Read labels and avoid high fructose corn syrup, processed chemicals added to increase shelf life and preprepared meals. Avoid fast foods. Eat slowly and plan meals for a week. Try to count calories and be mindful off daily calorie intake. Get into the habit of keeping an eye on your weight by using an appropriate scale. Learn to log exercise and discussed fitness Apps like ESTmob which can help keep log off calories taken versus calories burned. Local food should be preferred. Discussed Dirty Dozen Versus Clean Fifteen. Discussed healthy supplements like fish oil, Tumeric, Curcumin, Melatonin, Resveratrol, Probiotics, Vitamin-D, Alpha-Lipoic acid, Vitamin-D and coconut oil. 2. It is important to exercise regularly. Is a good habit to walk at least 30 minutes a day. Gentle weightlifting with standard precautions to protect the back. Finding activity like cycling or hiking and get into the habit of engaging in it. Stretching before and after the exercises important. It is also important to contact me if there are any problems like shortness of breath, chest pain, back pain and joint or muscle pain associated with the exercise. 3. Discussed age appropriate screening guidelines. Colonoscopy needs to start at age 50 with stool for occult blood as appropriate. There is a new test that can test for genetic abnormalities in the stool sample, Cologuard. This would not replace a colonoscopy but could be used as a screening tool for patients who do not want a colonoscopy. We discussed the importance of early detection of colon cancer. 4. Discussed current guidelines with respect to breast examination, mammogram and pap smear for early detection of breast and cervical cancer. Patient advised to follow up with these appointments. 5. Discussed safe driving and no use of smart phone while driving 6. Age-appropriate immunizations were discussed. A tetanus booster is needed every 10 years. Flu vaccine is recommended every year just before the start of the flu season. Shingles vaccine is recommended after age 50 but not all insurances cover it. Pneumonia vaccine is given after age 65 unless there are certain comorbidities for which it is started earlier. 7. Diagnostic labs were discussed. These could include/not limited to CBC CMP and lipids with fasting blood glucose and insulin levels. Vitamin D and hemoglobin A1c testing might be appropriate. All quetsions answered to patients satisfaction. Patient verbalized understanding of diagnosis and treatments explained. To call sooner prior to next visit it any questions/concerns arise. Case discussed with collaborating physician Lazaro Villagomez who reviewed the assessment and plan. Chart, medications, labs, vital signs reviewed. Dictation was accomplished with the use of Paxfire voice recognition software, prone to medical misidentifications and grammatical errors. This is unintentional and the practitioner does try to identify and correct these, but some could still be present. Please do not hesitate to contact practitioner for clarification. 09/30/2024 Raynaud's disease without gangrene (ICD-10 - I73.00) Kim is a pleasant 69-year-old female with a past medical history of chronic sinusitis, vestibular migraines, osteopenia, Raynaud's, Neer's, plantar fasciitis who presents to the office today for an urgent visit. #Upper respiratory symptoms: Viral swab negative. At this time there is no indication for bacterial infection, patient is to utilize [id number]-[id number]-[id number] Sudafed or decongestants. #Raynaud's flare: Prednisone taper was sent to the pharmacy as the patient states that this has provided relief for her in the past. The patient is not interested in a calcium channel domingo at this time. #Insect bites: Continue to use antiitch cream for pruritic lesions on the bilateral lower extremities All questions have been answered to patient's satisfaction. Patient verbalized understanding of diagnosis and treatments explained. Advised to call sooner prior to next visit it any questions/concerns arise. Case discussed with Afshan GONZALES who reviewed the assessment and plan. Chart, medications, labs, vital signs reviewed. Dictation was accomplished with the use of Paxfire voice recognition software, which is prone to medical misidentifications and grammatical errors. This are unintentional and the practitioner does try to identify and correct these, but some could still be present. Please do not hesitate to contact practitioner for clarification. 06/03/2024 Abnormal RBC (ICD-10 - R71.8) # Labs reviewed, overall without concern. Patient lives a very active, and healthy lifestyle. CBC showing improvement. Drinking plenty of water. # Patient encouraged to continue taking multiple supplements. # Following with dermatology, taking nystatin for her fingernails, cream, and recently waxed her eyebrows with wax it was too hot, therefore she has stoddard are healing well. Educated on Aquaphor.Soaking with alcohol/vinegar and has been helping. # Vestibular migraines: Controlled # Raynaud's syndrome: Much better with the warmer weather, Has warm hand compresses for the winter. # Planta fasciitis/shinsplint s: Treated with at home stretching, and proper shoe inserts. # Patient up-to-date on all routine screenings, and vaccines.Declines RSV but just received flu and COVID-vaccine at the pharmacy. Follow-up in 6 months for Medicare wellness visit with blood work, sooner as needed All quetsions answered to patients satisfaction. Patient verbalized understanding of diagnosis and treatments explained. To call sooner prior to next visit it any questions/concerns arise. Case discussed with collaborating physician Lazaro Villagomez who reviewed the assessment and plan. Chart, medications, labs, vital signs reviewed. Dictation was accomplished with the use of Paxfire voice recognition software, prone to medical misidentifications and grammatical errors. This is unintentional and the practitioner does try to identify and correct these, but some could still be present. Please do not hesitate to contact practitioner for clarification. 01/28/2025 Encounter for examination of blood pressure without abnormal findings (ICD-10 - Z01.30) Kim is a pleasant 6-year-old female who presents the office for an urgent care visit with 1 day of right hip pain, and history of bilateral knee pain for which she has noticed improvement with Celebrex, and PT. Patient states she is no longer following with PT, and physical exam overall benign aside from mild tenderness over the trochanteric bursa. Questioning potential bursitis, versus arthritis/joint inflammation. Patient is very active, could be secondary to repetitive use. No red flag symptoms at this time so we will treat with Celebrex twice daily as needed, tmgv-ydw-wyydluh conservative treatments, lidocaine patches, stretching, PT. If no improvement in symptoms, will order imaging. Did discuss emergency department criteria/criteria to call the office. Patient thankful. All quetsions answered to patients satisfaction. Patient verbalized understanding of diagnosis and treatments explained. To call sooner prior to next visit it any questions/concerns arise. Case discussed with collaborating physician Lazaro Villagomez who reviewed the assessment and plan. Chart, medications, labs, vital signs reviewed. Dictation was accomplished with the use of Paxfire voice recognition software, prone to medical misidentifications and grammatical errors. This is unintentional and the practitioner does try to identify and correct these, but some could still be present. Please do not hesitate to contact practitioner for clarification. 01/14/2025 Encounter for examination of blood pressure without abnormal findings (ICD-10 - Z01.30) Kim is a pleasant 69-year-old female presents today for urgent visit. #Left knee pain: 1 week history of left knee pain. Denies any trauma, popping sensation or clicking. Aggravated by flexion of left knee. Patient is physically active and will walk a few hours a day as well as strength training with a personal care attendant. Recently introduced a weighted vest to her walks 6 weeks ago. Otherwise, has had no change in exercise regimen. Denies any falls or new lower body exercises. Denies any swelling to left knee. Denies any other symptoms. On exam patient has tenderness to superior aspect of left patella. No posterior patella tenderness or edema. No palpable nodule. 2+ popliteal pulse. Tenderness aggravated with flexion when sitting from standing position. States overall tenderness has improved after elevating knee yesterday at work. Has also been using a topical IcyHot. States today was the first day that she was able to ambulate without dragging her left leg. Patient ambulating well without assistance or tenderness. Recommend avoiding strenuous activity in addition to lower body strength training for the next 1-2 weeks. Recommend avoiding weighted vest to avoid increased pressure on knee. Recommend rest, elevation and applying ice to left knee. Will prescribe Celebrex to take as needed twice daily x 7 days for pain management and place PT order. Will order knee x-ray and consider MRI. Will call regarding results. Patient agreeable with plan. #Bradycardia: Heart rate of 58. Appears to be within patient's baseline. Denies any shortness of breath, dizziness, lightheadedness or chest pain. Will continue to monitor. All questions answered to patients satisfaction. Patient verbalized understanding of diagnosis and treatments explained. To call sooner prior to next visit it any questions/concerns arise. Case discussed with collaborating physician Dr. Villagomez who reviewed the assessment and plan. Chart, medications, labs, vital signs reviewed. Dictation was accomplished with the use of Paxfire voice recognition software, prone to medical misidentifications and grammatical errors. This is unintentional and the practitioner does try to identify and correct these, but some could still be present. Please do not hesitate to contact practitioner for clarification. 01/22/2025 Encounter for examination of blood pressure without abnormal findings (ICD-10 - Z01.30) Kim is a pleasant 69-year-old female presents today for urgent visit. #Right knee pain: 1 week history of left knee pain. Denies any trauma, popping sensation or clicking. Aggravated by flexion of right knee. Patient is physically active and will walk a few hours a day as well as strength training with a personal care attendant. Denies any swelling to right knee. Denies any other symptoms. Tenderness aggravated with flexion when sitting from standing position. States overall tenderness has improved after elevating knee yesterday at work. Has also been using a topical IcyHot. States today was the first day that she was able to ambulate without dragging her left leg. Patient ambulating well without assistance or tenderness. Recommend avoiding strenuous activity in addition to lower body strength training for the next 1-2 weeks. Recommend rest, elevation and applying ice to left knee. Just finished Celebrex to take as needed twice daily x 7 days for pain management and place PT order. Will order knee x-ray. Patient agreeable with plan. #Bradycardia: Heart rate of 58. Appears to be within patient's baseline. Denies any shortness of breath, dizziness, lightheadedness or chest pain. Will continue to monitor. All questions answered to patients satisfaction. Patient verbalized understanding of diagnosis and treatments explained. To call sooner prior to next visit it any questions/concerns arise. Case discussed with collaborating physician Dr.N Villagomez who reviewed the assessment and plan. Chart, medications, labs, vital signs reviewed. Dictation was accomplished with the use of Paxfire voice recognition software, prone to medical misidentifications and grammatical errors. This is unintentional and the practitioner does try to identify and correct these, but some could still be present. Please do not hesitate to contact practitioner for clarification. 06/03/2024 Vestibular migraine (ICD-10 - G43.809) # Labs reviewed, overall without concern. Patient lives a very active, and healthy lifestyle. CBC showing improvement. Drinking plenty of water. # Patient encouraged to continue taking multiple supplements. # Following with dermatology, taking nystatin for her fingernails, cream, and recently waxed her eyebrows with wax it was too hot, therefore she has stoddard are healing well. Educated on Aquaphor.Soaking with alcohol/vinegar and has been helping. # Vestibular migraines: Controlled # Raynaud's syndrome: Much better with the warmer weather, Has warm hand compresses for the winter. # Planta fasciitis/shinsplint s: Treated with at home stretching, and proper shoe inserts. # Patient up-to-date on all routine screenings, and vaccines.Declines RSV but just received flu and COVID-vaccine at the pharmacy. Follow-up in 6 months for Medicare wellness visit with blood work, sooner as needed All quetsions answered to patients satisfaction. Patient verbalized understanding of diagnosis and treatments explained. To call sooner prior to next visit it any questions/concerns arise. Case discussed with collaborating physician Lazaro Villagomez who reviewed the assessment and plan. Chart, medications, labs, vital signs reviewed. Dictation was accomplished with the use of Paxfire voice recognition software, prone to medical misidentifications and grammatical errors. This is unintentional and the practitioner does try to identify and correct these, but some could still be present. Please do not hesitate to contact practitioner for clarification. 11/20/2024 Breast cancer screening by mammogram (ICD-10 - Z12.31) 06/03/2024 Plantar fasciitis (ICD-10 - M72.2) # Labs reviewed, overall without concern. Patient lives a very active, and healthy lifestyle. CBC showing improvement. Drinking plenty of water. # Patient encouraged to continue taking multiple supplements. # Following with dermatology, taking nystatin for her fingernails, cream, and recently waxed her eyebrows with wax it was too hot, therefore she has stoddard are healing well. Educated on Aquaphor.Soaking with alcohol/vinegar and has been helping. # Vestibular migraines: Controlled # Raynaud's syndrome: Much better with the warmer weather, Has warm hand compresses for the winter. # Planta fasciitis/shinsplint s: Treated with at home stretching, and proper shoe inserts. # Patient up-to-date on all routine screenings, and vaccines.Declines RSV but just received flu and COVID-vaccine at the pharmacy. Follow-up in 6 months for Medicare wellness visit with blood work, sooner as needed All quetsions answered to patients satisfaction. Patient verbalized understanding of diagnosis and treatments explained. To call sooner prior to next visit it any questions/concerns arise. Case discussed with collaborating physician Lazaro Villagomez who reviewed the assessment and plan. Chart, medications, labs, vital signs reviewed. Dictation was accomplished with the use of Paxfire voice recognition software, prone to medical misidentifications and grammatical errors. This is unintentional and the practitioner does try to identify and correct these, but some could still be present. Please do not hesitate to contact practitioner for clarification. Plan Of Treatment Pending Test Test Name Order Date X ray : Foot, right 03/15/2021 X ray : Wrist, right 10/21/2022 Mammogram 11/20/2024 X ray : Knee, left 2 views 01/14/2025 X ray : Knee, right 2 views 01/22/2025 X ray : Thoracic and lumbar 04/26/2021 DEXA 11/20/2024 Insulin, Fasting 11/11/2020 Lipid Panel 11/21/2018 CBC 11/21/2018 CBC 08/29/2018 BASIC METABOLIC PANEL 07/17/2018 COMPREHENSIVE METABOLIC PANEL 08/29/2018 COMPREHENSIVE METABOLIC PANEL 11/21/2018 Insulin Level 11/21/2018 CT Chest w Contrast 07/17/2018 XR Hip 2+ Views RT 12/12/2022 XR L-Spine 4+ Views 08/31/2022 VITAMIN D, 25-HYDROXY 11/21/2018 LIPID PANEL, STANDARD 12/14/2023 LIPID PANEL, STANDARD 06/03/2024 LIPID PANEL, STANDARD 12/02/2021 LIPID PANEL, STANDARD 03/15/2021 COMPREHENSIVE METABOLIC PANEL 03/15/2021 COMPREHENSIVE METABOLIC PANEL 06/03/2024 COMPREHENSIVE METABOLIC PANEL 12/02/2021 COMPREHENSIVE METABOLIC PANEL 12/14/2023 CBC (H/H, RBC, INDICES, WBC, PLT) 2020 CBC (INCLUDES DIFF/PLT) 06/03/2024 CBC (INCLUDES DIFF/PLT) 12/02/2021 CBC (INCLUDES DIFF/PLT) 12/14/2023 URINALYSIS, COMPLETE 12/14/2023 URINALYSIS, COMPLETE 12/02/2021 URINALYSIS, COMPLETE 06/03/2024 HEMOGLOBIN A1c 06/03/2024 VITAMIN D,25-OH,TOTAL,IA 03/15/2021 VITAMIN D,25-OH,TOTAL,IA 12/14/2023 Hemoglobin [id number] 12/19/2024 Next Appt Details Provider Name:MARK CHRISTIANSEN, 06/23/2025 02:30:00 PM, [address], [place], [address], Insurance Providers Payer Name Payer Address Payer Phone Subscriber Number Group Number Insured Name Patient Relationship to Insured Coverage Start Date Coverage End Date Medicare Part B J14 [address] [place] [address] [id number] KIM Mack Self - patient is the insured [facility] [address] [place] [address] [id number] [id number] Mack Self - patient is the insured Medical (General) History Medical History History ICD Code Lung nodule R91.1 Chronic sinusitis, unspecified J32.9 Vestibular migraine G43.809 Osteopenia, unspecified location M85.80 Raynaud's syndrome without gangrene I73. 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
--- OUTSIDE RECORDS SUMMARY | 2025-03-22 08:50 | XMS_ITS | Data Portability ---
Author Organization [place] - [facility], Allergy Address [address] [address] Assessment Encounter Date Assessment Date Assessment LastModified by Organization Details LastModified Time 07/02/2024 07/02/2024 Audiometric testing demonstrates bilateral neurosensory hearing loss without significant asymmetry. Speech recognition is good and amplification is not currently indicated. Recommend repeat audiometric testing in 1-2 years or with perceived change. Patient will also call if she has a Meniere episode. [email or web address] Not available 07/02/2024 13:53:21 02/17/2025 02/17/2025 69yo female with SNHL and history of Meniere's disease presents for cerumen removal. Cerumen impactions removed bilaterally, which patient tolerated well. TMs are normal to inspection. Recommend 6-month follow-up for cerumen debridement with hearing test after, sooner with issues. [email or web address] Not available 02/17/2025 09:59:18 Plan of Treatment Reminders Order Date Submit Date Provider Last Modified By Organization Details Last Modified Time Details Appointments Hearing Test 2024 01:00P M Hearing Test Not available Not available Not available Establish ed 15 2024 01:30P M BJ ISRAEL PA-C Not available Not available Not available Lab None recorded. Referral None recorded. Procedures None recorded. Surgeries None recorded. Imaging None recorded. Medication Orders None recorded. Patient TargetsNo targets recorded. Patient InstructionsNo instructions recorded. Reason for Referral None Reported. Results Created Date Observation Date Name Description Value Unit Range Abnormal Flag Note LastModifiedBy Organization Detail LastModifiedTime 07/03/20 24 audio gram No observ ation record ed. BARCODE Not Available 2023 14:54:47 Result Notes None recorded. Problems Name Problem SNOMED Code Status Onset Date Resolution Date Notes Provider Name and Address Organization Details Recorded Time Impacted cerumen in left ear 62247283850 73719 Active 2017 Impacted cerumen, left ear; Note: Date Diagnosed : 12/05/2017 1:35 PM (H61.22) Not Available [facility] 4 02:36:48 Sensorine ural hearing loss 15176796 Active 2017 Sensorine ural hearing loss, unilatera l, right ear, with unrestric sada hearing on the contralat eral side; Note: Date Diagnosed : 12/05/2017 2:27 PM (H90.41) Not Available [facility] 4 02:36:48 Dizziness and giddiness 084258385 Active 2017 Dizziness and giddiness ; Note: Date Diagnosed : 03/19/2018 1:46 PM (R42) Not Available [facility] 4 02:36:37 M ni re's disease 17041568 Active 2017 Meniere's disease, right ear; Note: Date Diagnosed : 03/19/2018 2:22 PM (H81.01) Not Available [facility] 4 02:36:44 Tinnitus of right ear 83696830808 08 Active 2017 Tinnitus, right ear; Note: Date Diagnosed : 03/19/2018 2:22 PM (H93.11) Not Available [facility] 4 02:36:47 Impacted cerumen of bilateral ears 24159407337 82444 Active 2017 Impacted cerumen, bilateral ; Note: Date Diagnosed : 8 2:08 PM (H61.23) Impacte d cerumen, bilateral ; Note: Date Diagnosed : 03/19/2018 2:21 PM (H61.23) ; Start Date : 8 Not Available [facility] 4 02:36:47 Bilateral tinnitus 84369872923 02 Active 2018 Tinnitus, bilateral ; Note: Date Diagnosed : 10/31/2018 2:56 PM (H93.13) Not Available [facility] 4 02:36:47 Sensorine ural hearing loss of bilateral ears 613313528 Active 2019 Sensorine ural hearing loss, bilateral ; Note: Date Diagnosed : 02/04/2020 11:22 AM (H90.3) Not Available [facility] 4 02:36:38 Impacted cerumen 47220880 Active 2022 Impacted cerumen; Note: Date Diagnosed : 03/21/2023 3:33 PM (380.4) Impacte d cerumen; Note: Date Diagnosed : 8 2:05 PM (380.4) ; Start Date : 8 Not Available [facility] 4 02:36:37 Problem Notes None recorded. Procedures Surgical History Date Name Laterality Status Provider Name and Address Organization Details Recorded Time 5 Cerumen removal without microscope bilat completed BJ ISRAEL PA-C [address] [place] [address], [phone], [facility] 02/16/2025 21:34:28 4 Air & Speech Audio with Tymps - 17657, 29286 & 40218 completed AILIN CANTRELL [address] [facility],[address], [address], [facility] 07/02/2024 13:42:21 4 Cerumen removal without microscope bilat completed MURIEL MARINO PA-C [address] [place] [address],[address], [phone], [facility] 07/02/2024 13:35:23 Imaging Results None recorded. Procedure Notes None recorded. Medical Equipment None Reported. Medications Name Sig Start Date Stop Date Status Note LastModified by Organization Details LastModified Time Prescripti on - Prior Authorizat ion Request active Script Copy/Prio r Auth^Scri pt Copy/Prio r Auth_2018 122 Not Available Not Available Not Available prednisone 10 mg tablet 4 TAB X 3 DAYS, 3 TABS X 3 DAYS, 2 TABS X3 DAYS, 1 TAB X 3 DAYS active Not Available Not Available No t Available fluconazol e 150 mg tablet TAKE 1 TABLET BY MOUTH FOR FINGERNAI L INFECTION active Not Available Not Available No t Available riboflavin (vitamin B2) 100 mg tablet 2018 active Medicatio n ID: [id number] Du ration Value: 30 Brand Name: melvina navarrete (vitamin B2) Send Method: E-Prescri bed Subs Allowed: subs [place] Medica tionGener icName: melvina navarrete (vitamin B2) Not Available Not Available Not Available tramadol 50 mg tablet TAKE 1 TABLET BY MOUTH EVERY 4 TO 6 HOURS NEEDED FOR PAIN active Not Available Not Available No t Available erythromyc in 5 mg/gram (0.5 %) eye ointment APPLY SPARINGLY AM AND PM TO AFFECTED AREAS ON EYELIDS UNTIL IMPROVED. active Not Available Not Available No t Available nystatin-t riamcinolo ne 100,000 unit/g-0.1 % topical cream APPLY TWICE A DAY AROUND AFFECTED NAILS active Not Available Not Available No t Available Vitamin B-6 100 mg tablet 2018 active Medicatio n ID: [id number] Br and Name: Vitamin B-6 Send Method: E-Prescri bed Subs Allowed: subs [place] [facility] icName: Vitamin B-6 Not Available Not Available Not Available celecoxib 100 mg capsule 1 CAPSULE NEEDED FOR KNEE PAIN ORALLY TWICE A DAY 14 DAYS active Not Available Not Available No t Available multivitam in capsule 2018 active Medicatio n ID: [id number] Br and Name: multivita min Send Method: E-Prescri bed Subs Allowed: subs [place] [facility]: multivita min Not Available Not Available Not Available Vitamin B-12 1,000 mcg tablet 2018 active Medicatio n ID: [id number] Br and Name: Vitamin B-12 Send Method: E-Prescri bed Subs Allowed: subs [place] Medica tionGener icName: Vitamin B-12 Not Available Not Available Not Available neomycin 3.5 mg/g-polym yxin B 10,000 unit/g-dex ameth 0.1 % eye oint APPLY A SMALL RIBBON TO BOTH UPPER LIDS 3 TIMES A DAY AFTER SURGERY active Not Available Not Available No t Available Magnesium (oxide/AA chelate) 300 mg capsule 2018 active Medicatio n ID: [id number] Br and Name: Magnesium (oxide/AA chelate) Send Method: E-Prescri bed Subs Allowed: subs [facility] icName: Magnesium (oxide/AA chelate) Not Available Not Available Not Available Yuvafem 10 mcg vaginal tablet INSERT 1 TABLET VAGINAL THREE TIMES A WEEK 90 DAYS active Not Available Not Available No t Available Vitals Date Recorded Body height Body mass index (BMI) Body weight Provider Name and Address Organization Details Last Updated DateTime 02/17/2025 160.02 cm 18.2 kg/m2 81759.01 g Charlotte Gómez [facility] 02/17/2025 08:58:29 Date Recorded Body height Body mass index (BMI) Body weight Provider Name and Address Organization Details Last Updated DateTime 07/02/2024 160.02 cm 18.2 kg/m2 15317.01 g Charlotte Gómez [facility] 07/02/2024 13:13:16 Social History None recorded. Functional Status None recorded. Mental Status None recorded. Family History Nothing Reported. Medical History No medical history recorded. Gynecological HistoryNo gynecological history recorded. Obstetrics History GPAL:G 0 P 0 0 0 0 Past Encounters Encounter ID Performer Location Encounter Start Date Encounter Closed Date Diagnosis/Indication Diagnosis SNOMED-CT Code Diagnosis ICD10 Code Diagnosis Note [id number] MURIEL MARINO PA-C [facility] [address] [address] 07/02/2024 12:48:48 07/02/2024 13:54:53 Impacted cerumen of bilateral ears 2426171592 596706 H61.23 M ni re's disease 14989396 H81.01 Sensorineu ral hearing loss of bilateral ears 217727615 H90.3 [id number] AILIN CANTRELL [facility] [address] [address] 07/02/2024 13:40:12 07/03/2024 08:03:42 Sensorineural hearing loss of bilateral ears 750167008 H90.3 Audiologic al evaluation results: 07/02/2024 Right ear: Normal sloping to a mild sensorineu ral hearing loss above 2K Hz with excellent word recognitio n. Left ear: Normal sloping to a mild sensorineu ral hearing loss above 2K Hz with excellent word recognitio n. Tympanomet ry: Right Ear:Type A Left Ear:Type A [id number] BJ ISRAEL PA-C [facility] [address] [place] [address] 02/17/2025 08:48:55 02/17/2025 09:25:01 Impacted cerumen of bilateral ears 8780761093 015518 H61.23 Health Concerns Section Related Observation LastModified by Organization Detai ls LastModified Time None Recorded Concern Status LastModified by Organization Details LastModified Time None Recorded Advance Directives Directive None Recorded Payers Insurance Date Sequence Insurance Name Policy Number Policy Bee Covered Member ID Bee Member ID Guarantor Name 02/17/2025 2 [facility] [id number] Kim Mack [id number] Kim Mack 02/17/2025 1 MEDICARE B-PA: [employer] Kim Mack [id number] Kim Mack Notes Date Note Type Note Provider Name and Address Organization Details Recorded Time 07/02/2024 text/html ROS as noted in the HPI 69 year old female presents for evaluation of ears. There has been no drainage, no pain. Hearing seems a little worse than at last evaluation. 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 History of Meniere's. Recently turned 69 and several people threw her a few gatherings. There was a lot of take out food, desserts, and some alcohol. [place] off balance for a while thereafter but now back to baseline. JOVANA MONTANEZ MD [address] [place] [address], [phone], [facility] 07/02/2024 16:35:49 02/17/2025 text/html ROS as noted in the HPI 69yo female with sensorineural hearing loss and history of Meniere's presents for evaluation of the ears. Reports no change in hearing. Denies ear pain, drainage, change in tinnitus, or Qtip use. LEO LUIS MD [address] [place] [address], [phone], [facility] - [facility] 02/17/2025 11:14:23 OBGyn Episode No OBEpisode recorded.
--- OUTSIDE RECORDS SUMMARY | 2025-03-22 08:50 | XMS_ITS | Clinical Summary ---
Author Organization Formerly [facility] Address [address] [place] [address] Care Team Providers Care Technical Coordinator Name Role Phone Jeronimo Villagomez MD Primary Care Provider [phone] Allergies No known active allergies Medications Medication Sig Dispensed Refills Start Date End Date Status Multiple Vitamin (MULTI-VITAMIN DAILY PO) Take by mouth. 0 Active Calcium Carbonate (CALCIUM 600 PO) Take by mouth. 0 Acti ve Riboflavin (VITAMIN B-2 PO) Take 2 tablets by mouth 2 (two) times a day. 0 Active Cyanocobalamin (VITAMIN B-12 PO) Take 1 tablet by mouth daily. 0 Active MAGNESIUM PO Take 1 tablet by mouth daily. 0 Active Active Problems No known active problems Family History Medical History Relation Name Comments Cancer Brother Skin Cancer Cousin breast Heart disease Father Hypertension Father Cancer Mother breast cancer COPD Sister Emphysema Sister Relation Name Status Comments Brother Cousin Father Mother Sister Social History Tobacco Use Types Packs/Day Years Used Date Smoking Tobacco: Former Smokeless Tobacco: Never Comments:Have not had a cig in 44 years Alcohol Use Standard Drinks/Week Comments No 0 (1 standard drink = 0.6 oz pur e alcohol) Sex and Gender Information Value Date Recorded Sex Assigned at Not on file Gender Identity Not on file Sexual Orientation Not on file Last Filed Vital Signs Vital Sign Reading Time Taken Comments Blood Pressure 107/72 11/20/2020 10:07 AM EDT Pulse 68 11/20/2020 10:07 AM EDT Temperature 36.3 C (97.4 F) 11/20/2020 10:07 AM EDT Respiratory Rate - - Oxygen Saturation - - Inhaled Oxygen Concentration - - Weight 49.8 kg (109 lb 12.8 oz) 021 10:07 AM EDT Height 154.9 cm (5' 1 ) 11/20/2020 10:0 7 AM EDT Body Mass Index 20.75 11/20/2020 10:07 AM EDT Plan of Treatment Health Maintenance Due Date Last Done Comments Hepatitis C Screening 1955 COVID-19 Vaccine (#1) 1954 Depression Screening 1966 Preventative Health Evaluation 1972 DTap / Tdap / Td (1 - Tdap) 1973 Colon Cancer Screening (Colonoscopy) 1999 Breast Cancer Screening (Mammogram) 2004 Shingrix-Zoster Vaccine (1 of 2) 2004 Fall Risk Assessment 2019 Osteoporosis Screening (DEXA Scan) 2019 Pneumococcal Vaccine (1 of 1 - PCV) 2019 Influenza Vaccine (#1) 2025 RSV Adult > 60+ Yrs or Pregn ant (1 - 1-dose 75+ series) 2029 Hepatitis B Vaccines Aged Out No long er eligible based on patient's age to complete this topic RSV Ped < 20 months Aged Out No longe r eligible based on patient's age to complete this topic Care Teams Technical Coordinator Relationship Specialty Start Date End Date Jeronimo Villagomez MD [address] [place] [id number] PCP - General Internal Medicine 04/24/18
== END 2025-03-22 08:45 | disposition home or self-care (01) ==
LOC: HO.MRI 08:44
PROVIDERS: PCP Internal Medicine; Visit Provider Nurse Practitioner Family
DX: R42 Dizziness and giddiness (principal); R90.82 White matter disease, unspecified; H55.00 Unspecified nystagmus
CPT/HCPCS: 70551

== ENCOUNTER → 2025-03-22 08:52 | Outpatient (BNV) | payer MEDICARE, OTHER, SELFPAY | PROVIDERS: PCP Internal Medicine; Visit Provider Radiology Diagnostic Radiology | DX: R90.82 White matter disease, unspecified (principal) | CPT/HCPCS: 70551 ==